=== PATIENT | male | born 1995 ===

== ENCOUNTER 2018-07-26 02:08 | Emergency (ER) | payer BC ==
--- NOTE | 2018-07-26 02:20 | ER Report ---
History and Physical Time Seen By MD: 02:20 Hx. of Stated Complaint: PT REPORTS POSSIBLE KIDNEY STONE ON RIGHT SIDE. HPI/ROS CHIEF COMPLAINT: right flank and abd pain HISTORY OF PRESENT ILLNESS: This is a 23 year old male. He had onset of severe flank and abdominal pain a couple of hours ago. Pain is severe, worsens with movement. Having some urinary frequency. Feels just like kidney stone in the past. No hematuria. No diarrhea or constipation. Denies fevers or chills. No shortness of breath or chest pain. Allergies: Coded Allergies: Sulfa (Sulfonamide Antibiotics) (Verified Allergy, Intermediate, "HIVES", 07/26/18) fexofenadine (Verified Allergy, Intermediate, "HIVES", 07/26/18) loratadine (Verified Allergy, Intermediate, "HIVES", 07/26/18) Home Meds Active Scripts Ketorolac Tromethamine (KETOROLAC TROMETHAMINE) 10 Mg Tab, 10 MG PO Q6H PRN for PAIN, #12 TAB 0 Refills Prov:DESTINY VU MD 07/26/18 Reviewed Nurses Notes: Yes Constitutional Vital Sign - Last 24 Hours 07/26/18 07/26/18 07/26/18 07/26/18 02:13 02:13 02:23 02:38 Temp 97.7 Pulse 70 73 66 Resp 18 B/P (MAP) 168/107 168/107 (127) Pulse Ox 96 99 93 O2 Delivery Room Air 07/26/18 07/26/18 07/26/18 07/26/18 02:53 02:55 03:08 03:15 Pulse 96 98 91 Pulse Ox 100 98 98 O2 Flow Rate 2.0 07/26/18 07/26/18 07/26/18 07/26/18 03:23 03:30 03:45 04:00 Pulse 100 93 90 97 Pulse Ox 97 96 98 96 07/26/18 07/26/18 07/26/18 07/26/18 04:15 04:30 04:45 05:15 Pulse 90 86 94 85 Pulse Ox 98 90 87 90 07/26/18 05:37 Resp 20 B/P (MAP) 132/79 (96) Pulse Ox 90 Intake and Output 07/25/18 07/25/18 07/26/18 15:00 23:00 07:00 Intake Total 2000 ml Balance 2000 ml Physical Exam General Appearance: The patient is alert. Acute distress due to pain. Non- toxic in appearance. Eyes: Pupils are equal, round. No pallor, injection or icterus. ENT: Mucous membranes are moist. Normal oral mucosa. Posterior oropharynx is normal. Neck: Supple and non tender. Respiratory: Lungs are clear to auscultation. Cardiovascular: Regular rate and rhythm. No murmurs, gallops or rubs. Normal capillary refill. No edema. Gastrointestinal: Abdomen is soft, tender on right side and right flank with palpation and percussion. Non-distended. Has rebound and guarding. Normal active bowel sounds. Has right sided CVA tenderness with percussion. Neurological: Alert and oriented x3. No focal neurologic deficits. Skin: No rashes. DIFFERENTIAL DIAGNOSIS: After history and physical exam, differential diagnosis was considered for abdomen and flank pain including but not limited to musculoskeletal causes, kidney stone, pyelonephritis, shingles, and intra- abdominal causes such as diverticulitis and appendicitis. Medical Decision Making Data Points Result Diagram: 07/26/18 0242 07/26/18 0242 Laboratory Hematology Test 07/26/18 02:42 07/26/18 04:19 Red Blood Count 5.50 M/uL (4.00-5.60) Mean Corpuscular Volume 92.1 fL (80.0-96.0) Mean Corpuscular Hemoglobin 31.2 pg (26.0-33.0) Mean Corpuscular Hemoglobin Concent 33.9 g/dL (32.0-36.0) Red Cell Distribution Width 12.9 % (11.5-14.5) Mean Platelet Volume 7.8 fL (7.2-11.1) Neutrophils (%) (Auto) 46.7 % (39.4-72.5) Lymphocytes (%) (Auto) 43.7 % (17.6-49.6) Monocytes (%) (Auto) 7.7 % (4.1-12.4) Eosinophils (%) (Auto) 1.3 % (0.4-6.7) Basophils (%) (Auto) 0.6 % (0.3-1.4) Nucleated RBC Relative Count (auto) 0.0 /100WBC Neutrophils # (Auto) 4.3 K/uL (2.0-7.4) Lymphocytes # (Auto) 4.1 K/uL (1.3-3.6) Monocytes # (Auto) 0.7 K/uL (0.3-1.0) Eosinophils # (Auto) 0.1 K/uL (0.0-0.5) Basophils # (Auto) 0.1 K/uL (0.0-0.1) Nucleated RBC Absolute Count (auto) 0.00 K/uL Sodium Level 139 mmol/L (137-145) Potassium Level 3.2 mmol/L (3.5-5.0) Chloride Level 102 mmol/L (98-107) Carbon Dioxide Level 27 mmol/L (22-30) Blood Urea Nitrogen 15 mg/dl (9-21) Creatinine 1.00 mg/dl (0.66-1.25) Glomerular Filtration Rate Calc > 60.0 Random Glucose 111 mg/dl (75-110) Calcium Level 9.3 mg/dl (8.4-10.2) Total Bilirubin 0.8 mg/dl (0.2-1.3) Aspartate Amino Transf (AST/SGOT) 22 U/L (0-35) Alanine Aminotransferase (ALT/SGPT) 24 U/L (0-56) Alkaline Phosphatase 66 U/L (0-126) Total Protein 7.4 g/dl (6.3-8.2) Albumin 4.7 g/dl (3.5-5.0) Urine Color Yellow Urine Clarity Clear Urine pH 6.0 pH (4.8-9.5) Urine Specific [place] 1.010 Urine Protein Negative mg/dL (NEGATIVE) Urine Glucose (UA) Negative mg/dL (NEGATIVE) Urine Ketones 20 mg/dL (NEGATIVE) Urine Blood Large (NEGATIVE) Urine Nitrite Negative (NEGATIVE) Urine Bilirubin Negative (NEGATIVE) Urine Urobilinogen Negative mg/dL (0.2-1.9) Urine Leukocyte Esterase Negative (NEGATIVE) Urine RBC 18 /HPF (0-2/HPF) Urine WBC <1 /HPF (0-5/HPF) Urine Squamous Epithelial Cells None /LPF (</=FEW) Urine Bacteria Few /HPF (NONE-FEW) Urine Mucus Few /HPF (NONE-FEW) Chemistry Test 07/26/18 02:42 07/26/18 04:19 White Blood Count 9.3 k/uL (4.5-11.0) Red Blood Count 5.50 M/uL (4.00-5.60) Hemoglobin 17.2 g/dL (14.0-18.0) Hematocrit 50.7 % (42.0-52.0) Mean Corpuscular Volume 92.1 fL (80.0-96.0) Mean Corpuscular Hemoglobin 31.2 pg (26.0-33.0) Mean Corpuscular Hemoglobin Concent 33.9 g/dL (32.0-36.0) Red Cell Distribution Width 12.9 % (11.5-14.5) Platelet Count 330 K/uL (150-450) Mean Platelet Volume 7.8 fL (7.2-11.1) Neutrophils (%) (Auto) 46.7 % (39.4-72.5) Lymphocytes (%) (Auto) 43.7 % (17.6-49.6) Monocytes (%) (Auto) 7.7 % (4.1-12.4) Eosinophils (%) (Auto) 1.3 % (0.4-6.7) Basophils (%) (Auto) 0.6 % (0.3-1.4) Nucleated RBC Relative Count (auto) 0.0 /100WBC Neutrophils # (Auto) 4.3 K/uL (2.0-7.4) Lymphocytes # (Auto) 4.1 K/uL (1.3-3.6) Monocytes # (Auto) 0.7 K/uL (0.3-1.0) Eosinophils # (Auto) 0.1 K/uL (0.0-0.5) Basophils # (Auto) 0.1 K/uL (0.0-0.1) Nucleated RBC Absolute Count (auto) 0.00 K/uL Glomerular Filtration Rate Calc > 60.0 Calcium Level 9.3 mg/dl (8.4-10.2) Total Bilirubin 0.8 mg/dl (0.2-1.3) Aspartate Amino Transf (AST/SGOT) 22 U/L (0-35) Alanine Aminotransferase (ALT/SGPT) 24 U/L (0-56) Alkaline Phosphatase 66 U/L (0-126) Total Protein 7.4 g/dl (6.3-8.2) Albumin 4.7 g/dl (3.5-5.0) Urine Color Yellow Urine Clarity Clear Urine pH 6.0 pH (4.8-9.5) Urine Specific [place] 1.010 Urine Protein Negative mg/dL (NEGATIVE) Urine Glucose (UA) Negative mg/dL (NEGATIVE) Urine Ketones 20 mg/dL (NEGATIVE) Urine Blood Large (NEGATIVE) Urine Nitrite Negative (NEGATIVE) Urine Bilirubin Negative (NEGATIVE) Urine Urobilinogen Negative mg/dL (0.2-1.9) Urine Leukocyte Esterase Negative (NEGATIVE) Urine RBC 18 /HPF (0-2/HPF) Urine WBC <1 /HPF (0-5/HPF) Urine Squamous Epithelial Cells None /LPF (</=FEW) Urine Bacteria Few /HPF (NONE-FEW) Urine Mucus Few /HPF (NONE-FEW) Urinalysis Test 07/26/18 04:19 Urine Color Yellow Urine Clarity Clear Urine pH 6.0 pH (4.8-9.5) Urine Specific [place] 1.010 Urine Protein Negative mg/dL (NEGATIVE) Urine Glucose (UA) Negative mg/dL (NEGATIVE) Urine Ketones 20 mg/dL (NEGATIVE) Urine Blood Large (NEGATIVE) Urine Nitrite Negative (NEGATIVE) Urine Bilirubin Negative (NEGATIVE) Urine Urobilinogen Negative mg/dL (0.2-1.9) Urine Leukocyte Esterase Negative (NEGATIVE) Urine RBC 18 /HPF (0-2/HPF) Urine WBC <1 /HPF (0-5/HPF) Urine Squamous Epithelial Cells None /LPF (</=FEW) Urine Bacteria Few /HPF (NONE-FEW) Urine Mucus Few /HPF (NONE-FEW) EKG/Imaging Imaging CT ABDOMEN PELVIS W/O CON HISTORY: Right flank and abdominal pain. History of kidney stones. COMPARISON: None. TECHNIQUE: Axial images were obtained from the lung bases through the symphysis pubis without intravenous contrast. Sagittal and coronal reformats were per formed. One of the following dose optimization techniques was utilized in the performance of this exam: Automated exposure control; adjustment of the mA and/or kV according to the patient's size; or use of an iterative reconstruction technique. Specific details can be referenced in the facility's radiology CT exam operational policy. CONTRAST: None. FINDINGS: Lower chest: There is minimal atelectasis. Liver: Normal. Gallbladder/biliary: Normal. Pancreas: Normal. Spleen: Normal. Adrenals: Normal. Kidneys/ureters/bladder: There is a 3 mm calculus in the dependent bladder. No hydronephrosis or hydroureter, but there is trace proximal right periureteral stranding. There is an extrarenal pelvis on the right. There is a 2 mm nonobstructing calculus in the superior right kidney. There is a 2 mm nonobstructing calculus in the inferior left kidney. GI/mesentery/peritoneal cavity: There is no bowel obstruction. There is no wall thickening or pericolonic stranding. The appendix is normal. Vessels: No atherosclerotic disease. No aneurysm. Nodes: Normal. Pelvis: There are phleboliths. Bones/vertebra/soft tissues: There is rightward curvature of the visible thorac ic spine. There is leftward curvature of the thoracolumbar spine. IMPRESSION: 1. 3 mm calculus within the bladder, suspect may have recently passed from the right side, as there is mild right periureteral stranding. No hydronephrosis. 2. Bilateral nonobstructing renal calculi, one in each kidney. 3. Normal appendix. Report Dictated By: Betsey Waldrop at 07/26/2018 4:08 AM ED Course/Re-evaluation Clinical Indication for ER IV: Hydration, IV Access ED Course Patient appears to have kidney stone. IV started, Pain medicines with Toradol and Morphine. Also given Zofran and a liter of NS. Pain gone and he feels much better. CT shows stone that has now passed into the bladder. Decision to Disposition Date: Jul 26, 2018 Decision to Disposition Time: 05:23 Depart Departure Latest Vital Signs Vital Signs Date Time Temp Pulse Resp B/P (MAP) Pulse Ox O2 Delivery O2 Flow Rate FiO2 07/26/18 05:37 20 132/79 (96) 90 07/26/18 05:15 85 07/26/18 02:55 2.0 07/26/18 02:13 97.7 Room Air Impression: Primary Impression: Kidney stone Condition: Improved Disposition: HOME OR SELF-CARE New Scripts Ketorolac Tromethamine (KETOROLAC TROMETHAMINE) 10 Mg Tab 10 MG PO Q6H PRN for PAIN, #12 TAB 0 Refills Prov: DESTINY VU MD 07/26/18 Patient Instructions: Kidney Stones (ED) Additional Instructions: You have a kidney stone, but pain is improved and it appears that the stone has passed into the bladder. You will likely not have further pain. If you do have pain, you can take Toradol 10mg, one every 6 hours as needed for pain. DESTINY VU MD Jul 26, 2018 02:20
[2018-07-26] MEDS ORDERED: MORPHINE 4 MG/ML SDV IVP ONE (02:25)
[2018-07-26] MEDS ORDERED: KETOROLAC 30 MG/ML VIAL IVP ONE (02:25)
[2018-07-26] MEDS ORDERED: ONDANSETRON 4 MG/2 ML VIAL IVP ONE (02:25)
[2018-07-26] MEDS ORDERED: NS(*) 0.9% 1000 ML BAG 1,000 ML IV ONE ×2 (02:25→03:30)
[2018-07-26 02:55] LABS: PLATELET COUNT, AUTOMATED 330 K/uL (150-450)
--- NOTE | 2018-07-26 04:22 | RADIOLOGY IMAGING REPORT ---
FACILITY: [facility] [place] PATIENT NAME: Rafael Toscano : 1995 MR: [id number] V: [id number] EXAM DATE: ORDERING PHYSICIAN: DESTINY VU TECHNOLOGIST: Location: [facility] [place] Patient: Rafael Toscano : 1995 Visit/Account:[id number] Date of Sevice: 07/26/2018 CT ABDOMEN PELVIS W/O CON HISTORY: Right flank and abdominal pain. History of kidney stones. COMPARISON: None. TECHNIQUE: Axial images were obtained from the lung bases through the symphysis pubis without intrave nous contrast. Sagittal and coronal reformats were performed. One of the following dose optimization techniques was utilized in the performance of this exam: Autom ated exposure control; adjustment of the mA and/or kV according to the patient's size; or use of an i terative reconstruction technique. Specific details can be referenced in the facility's radiology CT exam operational policy. CONTRAST: None. FINDINGS: Lower chest: There is minimal atelectasis. Liver: Normal. Gallbladder/biliary: Normal. Pancreas: Normal. Spleen: Normal. Adrenals: Normal. Kidneys/ureters/bladder: There is a 3 mm calculus in the dependent bladder. No hydronephrosis or hydr oureter, but there is trace proximal right periureteral stranding. There is an extrarenal pelvis on t he right. There is a 2 mm nonobstructing calculus in the superior right kidney. There is a 2 mm nonob structing calculus in the inferior left kidney. GI/mesentery/peritoneal cavity: There is no bowel obstruction. There is no wall thickening or pericol onic stranding. The appendix is normal. Vessels: No atherosclerotic disease. No aneurysm. Nodes: Normal. Pelvis: There are phleboliths. Bones/vertebra/soft tissues: There is rightward curvature of the visible thoracic spine. There is lef tward curvature of the thoracolumbar spine. IMPRESSION: 1. 3 mm calculus within the bladder, suspect may have recently passed from the right side, as there i s mild right periureteral stranding. No hydronephrosis. 2. Bilateral nonobstructing renal calculi, one in each kidney. 3. Normal appendix. Report Dictated By: Betsey Waldrop at 07/26/2018 4:08 AM Report E-Signed By: Betsey Waldrop at 07/26/2018 4:18 AM WSN:[id number]
[2018-07-26] MEDS ORDERED: KET10 PO (05:24)
[2018-07-26] MEDS ORDERED: KETOROLAC TROM 10 MG TAB TH PO ONE (05:25)
[2018-07-26 05:37] VITALS: BP 132/79
== END 2018-07-26 05:40 | disposition home or self-care (01) ==
LOC: ER 02:18
DX: N20.0 Calculus of kidney (principal)
CPT/HCPCS: 74176; 81001; 85025; 96361; 96374; 96375; 99284; J1885; J2270; J2405; J7030; 82040; 82247; 82310; 82374; 82435; 82565; 82947; 84075; 84132; 84155; 84295; 84450; 84460; 84520